=== PATIENT | male | born 1980 | race Caucasian/White ===

== ENCOUNTER 2017-07-05 09:27 | Emergency (ER) | payer OTHER ==
[2017-07-05 09:27] VITALS: BMI 26.6
[2017-07-05 09:39] VITALS: BP 165/95; PULSE 96; RESP 20; TEMP 97.9; O2SAT 99
[2017-07-05] MEDS ORDERED: Naproxen 550 mg Tab PO STA (10:10)
--- NOTE | 2017-07-05 10:12 | C.PDOC ---
History Of Present Illness 36 yo male, presnets with left leg and back painfor 1 month. lifts a lot at work. no fall, direct trauma. n ofevers, urinary changes or other complaints Time Seen by Provider: 07/05/17 10:05 Chief Complaint (Nursing): Lower Extremity Problem/Injury Past Medical History Reviewed: Historical Data, Nursing Documentation, Vital Signs Vital Signs: Last Vital Signs Temp 97.9 F 07/05/17 09:38 Pulse 96 H 07/05/17 09:38 Resp 20 07/05/17 09:38 BP 165/95 H 07/05/17 09:38 Pulse Ox 99 07/05/17 09:38 Family History: States: Unknown Family Hx - Social History Hx Alcohol Use: Yes Hx Substance Use: No - Immunization History Hx Tetanus Toxoid Vaccination: No Hx Influenza Vaccination: No Hx Pneumococcal Vaccination: No Review Of Systems Except As Marked, All Systems Reviewed And Found Negative. Musculoskeletal: Positive for: Back Pain, Leg Pain (left) Physical Exam - Physical Exam Appears: Well, No Acute Distress Skin: Normal Color, Warm, Dry Eye(s): bilateral: Normal Inspection, PERRL, EOMI Nose: Normal Throat: Normal Neck: Normal Cardiovascular: Rhythm Regular Respiratory: Normal Breath Sounds Gastrointestinal/Abdominal: Normal Exam Back: Normal Inspection, No Vertebral Tenderness, Paraspinal Tenderness, Straight Leg Raising ((+)left) Extremity: Normal ROM, No Tenderness, No Calf Tenderness, No Deformity, No Swelling ED Course And Treatment O2 Sat by Pulse Oximetry: 99 Medical Decision Making Medical Decision Making: suspect sciatica. no direct trauma. advise outpt f/u Disposition - Disposition Referrals: Clinic,Med Surg [Primary Care Provider] - Jhonatan Cardoso MD [Non-Staff] - Disposition: HOME/ ROUTINE Disposition Time: 10:11 Condition: STABLE Additional Instructions: follow up with specialist. return to er with worsening symptoms or concerns. Prescriptions: Cyclobenzaprine [Cyclobenzaprine HCl] 10 mg PO DAILY PRN #10 tab PRN Reason: Muscle Spasm Naproxen [Naprosyn] 500 mg PO BID PRN #14 tablet PRN Reason: Pain, Mild (1-3) Instructions: Sciatica (ED), Leg Pain (ED) Print Language: ROMANIAN - Clinical Impression Clinical Impression: Sciatica, Leg pain, left
[2017-07-05] MEDS ORDERED: Naproxen 550 mg Tab PO ONE (10:17)
== END 2017-07-05 10:44 | disposition home or self-care (01) ==
LOC: C.ER 09:27 → SUPCPDRO 09:27 → C.ER 10:44
DX: M54.30 Sciatica, unspecified side (principal); M79.605 Pain in left leg